=== PATIENT | male | born 1990 | race Two or more races ===

== ENCOUNTER 2019-08-27 10:10 | Outpatient (CLI) | payer OTHER ==
--- NOTE | 2019-08-27 13:11 | MRI Report ---
PROCEDURE: Knee RT W/O INDICATIONS: PAIN IN RT KNEE TECHNIQUE: Noncontrast sagittal PD fast spin echo and T2 fast spin echo with fat saturation, sagittal 3-D gradie nt sequence with fat saturation; coronal T1 spin echo and PD fast spin echo with fat saturation, and axial PD fast spin echo with fat saturation through the knee. COMPARISON: None. FINDINGS: Image quality: Excellent. Menisci: The medial and lateral menisci demonstrate normal morphology and internal signal. The meni scal root ligaments appear intact. Cruciate ligaments: The anterior and posterior cruciate ligaments appear intact. Medial structures: The medial collateral ligament appears intact. The posterior oblique ligament, s emimembranosus tendon insertions, and oblique popliteal ligament, and meniscocapsular junction appear intact. Visualized portions of the pes anserinus tendons appear normal. No abnormal bursal fluid. Lateral structures: The lateral collateral ligament, long and short heads of the biceps femoris tend on appear intact. The popliteus tendon appears normal; the popliteofibular ligament appears intact. The posterosuperior and anteroinferior popliteomeniscal fascicles appear intact. The arcuate and fa bellofibular ligaments appear intact, around the lateral inferior geniculate artery. Iliotibial band appears normal. Anterior structures: Nonspecific mild edema involving soft tissues overlying the anterior aspect of p atella and patellar tendon is seen. The quadriceps and patellar tendons appear intact. Patellar alig nment is normal. No femoral trochlear dysplasia or ventral trochlear prominence. No edema in the in frapatellar fat pad. Bones and cartilage: No bone marrow contusions or fractures. The cartilage of the medial and latera l femorotibial compartments, as well as the patellofemoral compartment, appears normal in thickness. Joint space: There is physiologic knee joint fluid. No Plunkett?s cyst. Normal appearing synovial pli are incidentally noted. IMPRESSION: 1. No MR evidence of internal derangement. 2. No marrow edema. No fracture or dislocation. Nonspecific mild anterior right knee soft tissue fernando a. Reviewed by: Davey Singh MD on 08/27/2019 1:10 PM PDT Approved by: Davey Singh MD on 08/27/2019 1:10 PM PDT Station ID: [id number]
== END 2019-08-27 10:11 | disposition home or self-care (01) ==
LOC: DI 10:10
DX: M25.561 Pain in right knee (principal); M25.361 Other instability, right knee

== ENCOUNTER 2020-11-27 08:00 | Outpatient (CLI) | payer OTHER | END 2020-11-27 23:59 | disposition home or self-care (01) | LOC: LAB 08:00 | PROVIDERS: ATTEND Family Medicine | DX: R50.9 Fever, unspecified (principal); Z20.822 Contact with and (suspected) exposure to COVID-19 ==